=== PATIENT | female | born 1935 | race Caucasian/White ===

== ENCOUNTER → 2017-06-06 | Outpatient (CLI) | payer MEDICARE ==
[~2017-06-06] MED LIST: REGADENOSON 0.4 MG/5 ML SYRINGE ONE
== END | disposition home or self-care (01) ==
LOC: CFH 09:08
PROVIDERS: ATTEND Internal Medicine Cardiovascular Disease
DX: I10 Essential (primary) hypertension (principal); R60.0 Localized edema; R53.83 Other fatigue; M79.669 Pain in unspecified lower leg
CPT/HCPCS: 78452; 93017; A9502; J2785

== ENCOUNTER → 2017-06-16 | Outpatient (CLI) | payer MEDICARE | END | disposition home or self-care (01) | LOC: CVU 11:58 | PROVIDERS: ATTEND Internal Medicine Cardiovascular Disease | DX: I87.2 Venous insufficiency (chronic) (peripheral) (principal); E11.9 Type 2 diabetes mellitus without complications; I10 Essential (primary) hypertension; R53.83 Other fatigue | CPT/HCPCS: 93306; 93922; 93970 ==

== ENCOUNTER → 2017-07-24 | Outpatient (CLI) | payer MEDICARE | END | disposition home or self-care (01) | LOC: STAR 13:45 | PROVIDERS: ATTEND Neurological Surgery | DX: Z01.810 Encounter for preprocedural cardiovascular examination (principal) | CPT/HCPCS: 93005 ==

== ENCOUNTER 2018-03-08 19:47 | Emergency (ER) | payer MEDICARE ==
[~2018-03-08] VITALS: Ht 139.7 cm; Wt 68.1 kg
[2018-03-08 19:50] VITALS: BP 150/85
[2018-03-08] MEDS ORDERED: DIPH,PERTUSS(ACELL),TET VAC/PF 0.5 ML IM-VACC ONE ×2 (20:16→20:30)
[2018-03-08] MEDS ORDERED: LIDOCAINE-MPF 1%, 5ML INFIL ONE (20:30)
[2018-03-08] MEDS ORDERED: BUPIVACAINE 0.25% ONE (20:31)
[2018-03-08] MEDS ORDERED: BUPIVACAINE/PF 0.25% INFIL SCH (22:00)
[2018-03-08] MEDS ORDERED: BUPIVACAINE/PF 0.25% INFIL ONE (22:00)
[2018-03-16] MEDS ORDERED: GLUC15006 PO (15:57)
[2018-03-16] MEDS ORDERED: MULT-516 PO (15:57)
[2018-03-16] MEDS ORDERED: LEVO75TA5 PO (15:57)
[2018-03-16] MEDS ORDERED: DESO15CR21 TP (15:57)
[2018-03-16] MEDS ORDERED: LISI-167 PO (15:57)
[2018-03-16] MEDS ORDERED: METF500T5 PO (15:57)
[2018-03-16] MEDS ORDERED: FLUN25SP NAS (15:57)
[2018-03-16] MEDS ORDERED: RANI150T4 PO (15:57)
[2018-03-16] MEDS ORDERED: GABA300C10 PO (15:57)
[2018-03-16] MEDS ORDERED: UBID50TA PO (15:57)
[2018-03-16] MEDS ORDERED: CITA10TA8 PO (15:57)
[2018-03-16] MEDS ORDERED: RAME8TAB19 PO (15:57)
[2018-03-16] MEDS ORDERED: ASCO-96 PO (15:57)
[2018-03-16] MEDS ORDERED: MIRT30TA4 PO (15:57)
[2018-03-16] MEDS ORDERED: CALCIUM PO (15:57)
[2018-03-16] MEDS ORDERED: MAGNESIUM PO (15:57)
[2018-03-16] MEDS ORDERED: LOVA40TA2 PO (15:57)
[2018-03-16] MEDS ORDERED: ROPINIROLE PO (15:57)
== END 2018-03-08 22:11 | disposition home or self-care (01) ==
LOC: ED 22:05
DX: S62.666B Nondisplaced fracture of distal phalanx of right little finger, initial encounter for open fracture (principal); S61.216A Laceration without foreign body of right little finger without damage to nail, initial encounter; X58.XXXA Exposure to other specified factors, initial encounter; Y93.89 Activity, other specified; Y92.099 Unspecified place in other non-institutional residence as the place of occurrence of the external cause; Y99.8 Other external cause status
CPT/HCPCS: 12001; 73130; 90471; 90715; 99284; J3490

== ENCOUNTER → 2018-03-16 | Outpatient (CLI) | payer MEDICARE ==
[~2018-03-16] MED LIST changes: +ASCO-96 PO; +CALCIUM PO; +CITA10TA8 PO; +DESO15CR21 TP; +FLUN25SP NAS; +GABA300C10 PO; +GLUC15006 PO; +LEVO75TA5 PO; +LISI-167 PO; +LOVA40TA2 PO; +MAGNESIUM PO; +METF500T4 PO; +MIRT30TA4 PO; +MULT-516 PO; +RAME8TAB19 PO; +RANI150T4 PO; -REGADENOSON 0.4 MG/5 ML SYRINGE ONE; +ROPINIROLE PO; +UBID50TA PO
[2018-03-16 15:37] LABS: MEAN CORPUSCULAR HEMOGLOBIN 26.8 pg (27.0-34.8); MEAN CORPUSCULAR HGB CONC 32.5 g/dL (32.4-35.8); MEAN CORPUSCULAR VOLUME 82.4 fL (80-100); MEAN PLATELET VOLUME 8.6 fL (7.4-10.4); PLATELET COUNT 289 x10^3/uL (130-400); RED BLOOD COUNT 4.64 x10^6/uL (3.82-5.3)
[2018-03-16 15:46] LABS: INTERNATIONAL NORMALIZED RATIO 0.97 (0.93-1.1)
[2018-03-16 15:51] LABS: BASOPHILS # (AUTO) 0.04 x10^3/uL (0-0.1); BASOPHILS % (AUTO) 0 % (0-1); EOSINOPHILS # (AUTO) 0.48 x10^3/uL (0-0.4); EOSINOPHILS % (AUTO) 6 % (1-7); LYMPHOCYTES # (AUTO) 2.13 x10^3/uL (1-3.4); LYMPHOCYTES % (AUTO) 27 % (22-44); MONOCYTES # (AUTO) 0.67 x10^3/uL (0.2-0.8); MONOCYTES % (AUTO) 8 % (2-9); NEUTROPHILS # (AUTO) 4.71 x10^3/uL (1.8-6.8); NEUTROPHILS % (AUTO) 59 % (42-75)
[2018-03-16 16:06] LABS: MD NO
[2018-03-16 16:12] LABS: CHLORIDE 109 mmol/L (98-107)
[2018-03-16 16:19] LABS: MICROSCOPIC NOT IND
[2018-03-16 16:24] LABS: CULTURE INDICATED? NO
[2018-03-16 16:30] LABS: ALANINE AMINOTRANSFERASE 28 U/L (12-78); ALBUMIN 3.7 g/dL (3.4-5.0); ALKALINE PHOSPHATASE 90 U/L (45-117); ANION GAP 8 mmol/L (5-15); BILIRUBIN,TOTAL 0.4 mg/dL (0.2-1.0); CALCIUM 8.8 mg/dL (8.5-10.1); CREATININE 0.92 mg/dL (0.55-1.02); TOTAL PROTEIN 7.4 g/dL (6.4-8.2)
== END | disposition home or self-care (01) ==
LOC: STAR 14:12
PROVIDERS: ATTEND Neurological Surgery
DX: Z01.818 Encounter for other preprocedural examination (principal); G56.01 Carpal tunnel syndrome, right upper limb
CPT/HCPCS: 36415; 80053; 81003; 85025; 85610; 85730; 93005

== ENCOUNTER 2018-08-22 22:16 | Inpatient (IN) | payer MEDICARE ==
[~2018-08-22] VITALS: Ht 147.3 cm; Wt 76.2 kg
[~2018-08-22 22:16] MED LIST changes: +METF500T17 PO; -METF500T4 PO
[2018-08-22] MEDS ORDERED: SODIUM CHLORIDE FLUSH 10ML SYR IVF ONE (23:00)
[2018-08-22] MEDS ORDERED: METHYLNALTREXONE 12 MG/0.6 ML SQ ONE ×2 (23:00→23:17)
[2018-08-22] MEDS ORDERED: ONDANSETRON ODT 4 MG PO ONE (23:00)
[2018-08-22] MEDS ORDERED: ONDANSETRON ODT 4 MG ONE (23:17)
[2018-08-22 23:25] LABS: BASOPHILS # (AUTO) 0.01 x10^3/uL (0-0.1); BASOPHILS % (AUTO) 0 % (0-1); EOSINOPHILS # (AUTO) 0.19 x10^3/uL (0-0.4); EOSINOPHILS % (AUTO) 3 % (1-7); LYMPHOCYTES # (AUTO) 1.43 x10^3/uL (1-3.4); LYMPHOCYTES % (AUTO) 22 % (22-44); MD NO; MEAN CORPUSCULAR HEMOGLOBIN 28.6 pg (27.0-34.8); MEAN CORPUSCULAR HGB CONC 33.4 g/dL (32.4-35.8); MEAN CORPUSCULAR VOLUME 85.5 fL (80-100); MEAN PLATELET VOLUME 8.6 fL (7.4-10.4); MONOCYTES % (AUTO) 12 % (2-9); NEUTROPHILS # (AUTO) 4.16 x10^3/uL (1.8-6.8); NEUTROPHILS % (AUTO) 63 % (42-75); PLATELET COUNT 289 x10^3/uL (130-400); RED BLOOD COUNT 4.82 x10^6/uL (3.82-5.3); RED CELL DISTRIBUTION WIDTH 16.2 % (9.6-15.2)
[2018-08-22 23:27] LABS: ALANINE AMINOTRANSFERASE 20 U/L (12-78); ALBUMIN 3.6 g/dL (3.4-5.0); ANION GAP 10 mmol/L (5-15); CALCIUM 9.3 mg/dL (8.5-10.1); CHLORIDE 104 mmol/L (98-107); CREATININE 0.97 mg/dL (0.55-1.02)
[2018-08-22 23:29] LABS: ALKALINE PHOSPHATASE 73 U/L (45-117); BILIRUBIN,TOTAL 0.5 mg/dL (0.2-1.0); TOTAL PROTEIN 7.4 g/dL (6.4-8.2)
[2018-08-23] MEDS ORDERED: OMNIPAQUE 350 MG/ML, 100ML BOTTLE ONE (00:02)
[2018-08-23] MEDS ORDERED: METRONIDAZOLE PMX 500MG/100ML 100 ML ONE (00:49)
[2018-08-23] MEDS ORDERED: MORPHINE SULFATE 4 MG/ML, 1ML ONE (00:50)
[2018-08-23] MEDS ORDERED: METRONIDAZOLE PMX 500MG/100ML 100 ML IV ONE (01:00)
[2018-08-23] MEDS ORDERED: MORPHINE SULFATE 4 MG/ML, 1ML IVPush PRN (01:00)
[2018-08-23] MEDS ORDERED: PLEASE ENTER WEIGHT MC SCH (01:00)
[2018-08-23] MEDS ORDERED: CIPROFLOXACIN/PMX 400MG/200ML 200 ML IV ONE (01:00)
[2018-08-23] MEDS ORDERED: MAGN400T36 PO (01:28)
[2018-08-23] MEDS ORDERED: hydrALAzine 20 MG/ML, 1ML IVPush PRN (01:30)
[2018-08-23] MEDS ORDERED: LABETALOL 5MG/ML, 20ML IVPush PRN (01:30)
[2018-08-23] MEDS ORDERED: ONDANSETRON 2MG/ML, 2ML IVPush PRN (01:30)
[2018-08-23] MEDS ORDERED: ONDANSETRON ODT 4 MG PO PRN (01:30)
[2018-08-23] MEDS ORDERED: PROMETHAZINE 25 MG/ML, 1ML IM PRN (01:30)
[2018-08-23 01:52] LABS: MICROSCOPIC NOT IND
[2018-08-23 01:53] LABS: CULTURE INDICATED? NO
[2018-08-23 01:55] VITALS: BP 134/79
[2018-08-23] MEDS: SODIUM CHLORIDE 0.9% 1,000 ML IV SCH ×3 (02:04→17:46)
[2018-08-23 02:12] LABS: FREE T4 (FREE THYROXINE) 1.37 ng/dL (0.76-1.46); THYROID STIMULATING HORMONE 1.41 mIU/L (0.358-3.740)
[2018-08-23] MEDS ORDERED: FLUTICASONE NASAL SPRAY 16GM NAS PRN (02:30)
[2018-08-23 02:34] LABS: HEMOGLOBIN A1C 8.6 % (4.2-6.3)
[2018-08-23] MEDS: ERTAPENEM 1 GM in SODIUM CHLORIDE 0.9% 50 ML IV SCH (02:43)
[2018-08-23 03:00] VITALS: BP 134/79
[2018-08-23] MEDS ORDERED: TRIAMCINOLONE CRM 0.1%, 15GM TP PRN (03:00)
[2018-08-23] MEDS: LEVOTHYROXINE 75 MCG TABLET PO SCH (06:02)
[2018-08-23] MEDS: morphine SULFATE 10 MG/ML, 1ML IVPush PRN ×2 (06:11→10:04)
[2018-08-23 06:46] LABS: BASOPHILS # (AUTO) 0.03 x10^3/uL (0-0.1); BASOPHILS % (AUTO) 0 % (0-1); EOSINOPHILS # (AUTO) 0.27 x10^3/uL (0-0.4); EOSINOPHILS % (AUTO) 4 % (1-7); LYMPHOCYTES # (AUTO) 1.75 x10^3/uL (1-3.4); LYMPHOCYTES % (AUTO) 28 % (22-44); MD NO; MEAN CORPUSCULAR HEMOGLOBIN 28.8 pg (27.0-34.8); MEAN CORPUSCULAR HGB CONC 33.7 g/dL (32.4-35.8); MEAN CORPUSCULAR VOLUME 85.6 fL (80-100); MEAN PLATELET VOLUME 8.6 fL (7.4-10.4); MONOCYTES # (AUTO) 0.81 x10^3/uL (0.2-0.8); MONOCYTES % (AUTO) 13 % (2-9); NEUTROPHILS # (AUTO) 3.39 x10^3/uL (1.8-6.8); NEUTROPHILS % (AUTO) 54 % (42-75); PLATELET COUNT 228 x10^3/uL (130-400); RED BLOOD COUNT 4.25 x10^6/uL (3.82-5.3); RED CELL DISTRIBUTION WIDTH 16.3 % (9.6-15.2)
[2018-08-23 06:57] LABS: ALANINE AMINOTRANSFERASE 17 U/L (12-78); ANION GAP 8 mmol/L (5-15); CALCIUM 8.7 mg/dL (8.5-10.1); CHLORIDE 107 mmol/L (98-107); CHOLESTEROL, TOTAL 105 mg/dL (140-239); CREATININE 0.81 mg/dL (0.55-1.02)
[2018-08-23 06:59] LABS: ALKALINE PHOSPHATASE 60 U/L (45-117); BILIRUBIN,TOTAL 0.4 mg/dL (0.2-1.0); CHOL/HDL RATIO 3.2; HDL CHOL % 31 % (28-40); HDL CHOLESTEROL (DIRECT) 33 mg/dL (40-60); TRIGLYCERIDES 142 mg/dL (50-200); VLDL CHOLESTEROL 28 mg/dL (0-25)
[2018-08-23 07:00] LABS: LDL CHOLESTEROL,CALCULATED 44 mg/dL (54-169); LDL/HDL RATIO 1.3 (0.5-3.0)
[2018-08-23] MEDS: CIPRO MC SCH ×2 (08:00→16:00)
[2018-08-23] MEDS: ROPINIROLE MC SCH ×2 (08:00→16:00)
[2018-08-23 08:56] VITALS: BP 140/85
[2018-08-23] MEDS: LISINOPRIL 20 MG TABLET PO SCH (08:59)
[2018-08-23] MEDS: CITALOPRAM 10 MG TABLET PO SCH (08:59)
[2018-08-23] MEDS: GABAPENTIN 300 MG CAPSULE PO SCH ×3 (08:59→21:12)
[2018-08-23] MEDS: INSULIN LISPRO 100 UNITS/ML, PEN SQ-INSULIN SCH ×4 (08:59→21:00)
[2018-08-23] MEDS: METRONIDAZOLE PMX 500MG/100ML 100 ML IV SCH ×2 (09:00→17:46)
[2018-08-23] MEDS: OXYcodone IR 5MG TABLET PO PRN (12:31)
[2018-08-23 13:40] VITALS: BP 81/45
[2018-08-23 18:58] VITALS: BP 99/63
[2018-08-23] MEDS: RAMELTEON 8 MG PO SCH (21:12)
[2018-08-23] MEDS: ROPINIROLE 1MG TABLET PO SCH (21:12)
[2018-08-23] MEDS: LOVASTATIN 40 MG TABLET PO SCH (21:12)
[2018-08-23] MEDS: MIRTAZAPINE 30 MG TAB.RAPDIS PO SCH (21:12)
[2018-08-24 00:54] VITALS: BP 103/65
[2018-08-24] MEDS: METRONIDAZOLE PMX 500MG/100ML 100 ML IV SCH ×3 (00:56→16:32)
[2018-08-24] MEDS: ERTAPENEM 1 GM in SODIUM CHLORIDE 0.9% 50 ML IV SCH (02:10)
[2018-08-24] MEDS: SODIUM CHLORIDE 0.9% 1,000 ML IV SCH (02:10)
[2018-08-24] MEDS: LEVOTHYROXINE 75 MCG TABLET PO SCH (06:57)
[2018-08-24] MEDS: INSULIN LISPRO 100 UNITS/ML, PEN SQ-INSULIN SCH ×4 (07:00→20:15)
[2018-08-24 07:40] VITALS: BP 164/83
[2018-08-24 08:27] LABS: BASOPHILS # (AUTO) 0.02 x10^3/uL (0-0.1); BASOPHILS % (AUTO) 0 % (0-1); EOSINOPHILS # (AUTO) 0.18 x10^3/uL (0-0.4); EOSINOPHILS % (AUTO) 4 % (1-7); LYMPHOCYTES # (AUTO) 1.21 x10^3/uL (1-3.4); LYMPHOCYTES % (AUTO) 24 % (22-44); MD NO; MEAN CORPUSCULAR HEMOGLOBIN 28.4 pg (27.0-34.8); MEAN CORPUSCULAR HGB CONC 32.9 g/dL (32.4-35.8); MEAN CORPUSCULAR VOLUME 86.4 fL (80-100); MEAN PLATELET VOLUME 8.5 fL (7.4-10.4); MONOCYTES # (AUTO) 0.62 x10^3/uL (0.2-0.8); MONOCYTES % (AUTO) 13 % (2-9); NEUTROPHILS # (AUTO) 2.93 x10^3/uL (1.8-6.8); NEUTROPHILS % (AUTO) 59 % (42-75); PLATELET COUNT 225 x10^3/uL (130-400); RED BLOOD COUNT 4.22 x10^6/uL (3.82-5.3); RED CELL DISTRIBUTION WIDTH 16.2 % (9.6-15.2)
[2018-08-24 08:35] LABS: ANION GAP 9 mmol/L (5-15); CALCIUM 7.9 mg/dL (8.5-10.1); CHLORIDE 110 mmol/L (98-107)
[2018-08-24] MEDS: CITALOPRAM 10 MG TABLET PO SCH (09:02)
[2018-08-24] MEDS: LISINOPRIL 20 MG TABLET PO SCH (09:02)
[2018-08-24] MEDS: GABAPENTIN 300 MG CAPSULE PO SCH ×3 (09:02→20:29)
[2018-08-24 09:24] LABS: CREATININE 0.68 mg/dL (0.55-1.02)
[2018-08-24 13:04] VITALS: BP 105/66
[2018-08-24 19:19] VITALS: BP 106/61
[2018-08-24] MEDS: LOVASTATIN 40 MG TABLET PO SCH (20:29)
[2018-08-24] MEDS: ROPINIROLE 1MG TABLET PO SCH (20:29)
[2018-08-24] MEDS: MIRTAZAPINE 30 MG TAB.RAPDIS PO SCH (20:29)
[2018-08-24] MEDS: RAMELTEON 8 MG PO SCH (20:31)
[2018-08-25] MEDS: METRONIDAZOLE PMX 500MG/100ML 100 ML IV SCH ×3 (01:03→17:00)
[2018-08-25 01:42] VITALS: BP 110/67
[2018-08-25] MEDS: ERTAPENEM 1 GM in SODIUM CHLORIDE 0.9% 50 ML IV SCH (02:05)
[2018-08-25] MEDS: LEVOTHYROXINE 75 MCG TABLET PO SCH (06:39)
[2018-08-25] MEDS: INSULIN LISPRO 100 UNITS/ML, PEN SQ-INSULIN SCH ×4 (07:00→22:33)
[2018-08-25 07:19] VITALS: BP 115/73
[2018-08-25] MEDS: CITALOPRAM 10 MG TABLET PO SCH (09:48)
[2018-08-25] MEDS: LISINOPRIL 20 MG TABLET PO SCH (09:48)
[2018-08-25] MEDS: GABAPENTIN 300 MG CAPSULE PO SCH ×3 (09:48→22:29)
[2018-08-25] MEDS ORDERED: SODIUM CHLORIDE 0.9% 500 ML IV SCH (13:30)
[2018-08-25 14:28] VITALS: BP 118/72
[2018-08-25 16:10] VITALS: BP 126/82
[2018-08-25] MEDS ORDERED: DEXAMETHASONE 4 MG/ML, 1ML ONE (16:39)
[2018-08-25] MEDS ORDERED: SUCCINYLCHOLINE 20 MG/ML, 10ML ONE (16:39)
[2018-08-25] MEDS ORDERED: NEOSTIGMINE 1 MG/ML, 10ML ONE (16:39)
[2018-08-25] MEDS ORDERED: CEFOTETAN 1 GM ONE (16:39)
[2018-08-25] MEDS ORDERED: MIDAZOLAM 1 MG/ML, 2ML ONE (16:39)
[2018-08-25] MEDS ORDERED: PHENYLEPHRINE 10 MG/ML ONE (16:39)
[2018-08-25] MEDS ORDERED: PROPOFOL 10 MG/ML, 20ML ONE (16:39)
[2018-08-25] MEDS ORDERED: FENTANYL PF 250 MCG/5ML ONE (16:39)
[2018-08-25] MEDS ORDERED: GLYCOPYRROLATE 0.2MG/1ML, 5ML ONE (16:39)
[2018-08-25] MEDS ORDERED: ROCURONIUM 10 MG/ML,10ML ONE (16:39)
[2018-08-25] MEDS ORDERED: METRONIDAZOLE PMX 500MG/100ML 100 ML ONE (18:09)
[2018-08-25] MEDS ORDERED: FENTANYL PF 100 MCG/2ML ONE ×2 (19:02→20:11)
[2018-08-25] MEDS ORDERED: PROMETHAZINE 25 MG/ML, 1ML IV PRN (19:30)
[2018-08-25] MEDS ORDERED: LABETALOL 5MG/ML, 20ML IV PRN (19:30)
[2018-08-25] MEDS ORDERED: DIAZEPAM 5 MG/ML, 2ML IVPush PRN (19:30)
[2018-08-25] MEDS ORDERED: OXYcodone 5 MG/5 ML ORAL.SOL UDC PO PRN (19:30)
[2018-08-25] MEDS ORDERED: ONDANSETRON 2MG/ML, 2ML IV PRN (19:30)
[2018-08-25] MEDS ORDERED: MEPERIDINE/PF 25MG/0.5ML IVPush PRN (19:30)
[2018-08-25] MEDS ORDERED: HALOPERIDOL 5 MG/ML IV PRN (19:30)
[2018-08-25] MEDS ORDERED: hydrALAzine 20 MG/ML, 1ML IV PRN (19:30)
[2018-08-25] MEDS ORDERED: PROMETHAZINE 12.5 MG SUPP PR PRN (19:30)
[2018-08-25] MEDS ORDERED: HYDROmorphone 1 MG/ML, 1ML IVPush PRN (19:30)
[2018-08-25] MEDS ORDERED: ONDANSETRON ODT 8 MG PO PRN (19:30)
[2018-08-25] MEDS ORDERED: MORPHINE SULFATE 4 MG/ML, 1ML IVPush PRN (19:30)
[2018-08-25] MEDS ORDERED: EPHEDRINE 50 MG/ML, 1ML IVPush PRN (19:30)
[2018-08-25] MEDS ORDERED: MIDAZOLAM 1 MG/ML, 2ML IV PRN (19:30)
[2018-08-25] MEDS ORDERED: ALBUTEROL SULFATE 2.5 MG/3 ML NPPB PRN (19:30)
[2018-08-25] MEDS ORDERED: HYDROmorphone PCA 30 MG/30 ML IV PRN (19:30)
[2018-08-25] MEDS: FENTANYL PF 100 MCG/2ML IV PRN ×3 (20:10→20:20)
[2018-08-25] MEDS ORDERED: HYDROmorphone 2 MG/ML, 1ML ONE (20:24)
[2018-08-25] MEDS: HYDROmorphone 1 MG/ML, 1ML IV PRN ×2 (20:25→20:30)
[2018-08-25] MEDS: POTASSIUM CHLORIDE 30 MEQ in SODIUM CHLORIDE 0.45% 1,000 ML IV SCH (21:39)
[2018-08-25] MEDS: LOVASTATIN 40 MG TABLET PO SCH (22:08)
[2018-08-25] MEDS: RAMELTEON 8 MG PO SCH (22:29)
[2018-08-25] MEDS: MIRTAZAPINE 30 MG TAB.RAPDIS PO SCH (22:29)
[2018-08-25] MEDS: ROPINIROLE 1MG TABLET PO SCH (22:29)
[2018-08-25] MEDS: FAMOTIDINE 20 MG/2 ML IVPush SCH (22:34)
[2018-08-25 22:36] VITALS: BP 89/55
[2018-08-25] MEDS ORDERED: SODIUM CHLORIDE 0.9% 1,000ML IVBOLUS ONE (23:30)
[2018-08-26 00:46] VITALS: BP 107/61
[2018-08-26] MEDS: METRONIDAZOLE PMX 500MG/100ML 100 ML IV SCH ×3 (00:56→16:02)
[2018-08-26] MEDS: ERTAPENEM 1 GM in SODIUM CHLORIDE 0.9% 50 ML IV SCH (02:18)
[2018-08-26] MEDS: POTASSIUM CHLORIDE 30 MEQ in SODIUM CHLORIDE 0.45% 1,000 ML IV SCH ×2 (03:58→09:15)
[2018-08-26 04:00] VITALS: BP 92/60
[2018-08-26 06:00] LABS: MEAN CORPUSCULAR HGB CONC 32.5 g/dL (32.4-35.8); MEAN CORPUSCULAR VOLUME 86.3 fL (80-100); MEAN PLATELET VOLUME 8.6 fL (7.4-10.4); PLATELET COUNT 252 x10^3/uL (130-400); RED BLOOD COUNT 4.21 x10^6/uL (3.82-5.3); RED CELL DISTRIBUTION WIDTH 15.8 % (9.6-15.2)
[2018-08-26] MEDS: LEVOTHYROXINE 75 MCG TABLET PO SCH (06:00)
[2018-08-26 06:07] LABS: CHLORIDE 112 mmol/L (98-107)
[2018-08-26 06:17] LABS: ANION GAP 9 mmol/L (5-15); CREATININE 0.99 mg/dL (0.55-1.02)
[2018-08-26 06:27] LABS: MD YES
[2018-08-26 06:28] LABS: BAND#(MANUAL) 4.45 x10^3/uL; BANDS%(MANUAL) 35 % (0-7); LYMPH#(MANUAL) 0.38 x10^3/uL (1-3.4); LYMPHS% (MANUAL) 3 % (22-44); METAMYELOCYTES# (MANUAL) 0.64 x10^3/uL (0-0); METAMYELOCYTES% (MANUAL) 5 % (0-1); MONOS#(MANUAL) 0.64 x10^3/uL (0.3-2.7); MONOS% (MANUAL) 5 % (2-9); SEGS% (MANUAL) 52 % (42-75)
[2018-08-26 06:29] LABS: <PLATELET ESTIMATE> ADEQUATE; <PLT MORPHOLOGY> NORMAL PLT MORPH; ANISOCYTOSIS 1+
[2018-08-26 06:42] VITALS: BP 92/55
[2018-08-26] MEDS: INSULIN LISPRO 100 UNITS/ML, PEN SQ-INSULIN SCH ×4 (07:47→21:39)
[2018-08-26] MEDS: CITALOPRAM 10 MG TABLET PO SCH (08:41)
[2018-08-26] MEDS: FAMOTIDINE 20 MG/2 ML IVPush SCH ×2 (08:41→21:29)
[2018-08-26] MEDS: GABAPENTIN 300 MG CAPSULE PO SCH ×3 (08:42→21:00)
[2018-08-26] MEDS: LISINOPRIL 20 MG TABLET PO SCH (08:42)
[2018-08-26] MEDS: D5%-0.9% NACL 1,000 ML IV SCH ×2 (11:51→18:12)
[2018-08-26 15:23] VITALS: BP 112/65
[2018-08-26 19:29] VITALS: BP 99/62
[2018-08-26] MEDS: MIRTAZAPINE 30 MG TAB.RAPDIS PO SCH (21:00)
[2018-08-26] MEDS: LOVASTATIN 40 MG TABLET PO SCH (21:00)
[2018-08-26] MEDS: ROPINIROLE 1MG TABLET PO SCH (21:00)
[2018-08-26] MEDS: RAMELTEON 8 MG PO SCH (21:00)
[2018-08-27] MEDS: D5%-0.9% NACL 1,000 ML IV SCH ×3 (00:18→21:32)
[2018-08-27 00:32] VITALS: BP 116/72
[2018-08-27] MEDS: METRONIDAZOLE PMX 500MG/100ML 100 ML IV SCH ×3 (01:06→16:58)
[2018-08-27] MEDS: INSULIN LISPRO 100 UNITS/ML, PEN SQ-INSULIN SCH ×6 (01:16→21:31)
[2018-08-27] MEDS: ERTAPENEM 1 GM in SODIUM CHLORIDE 0.9% 50 ML IV SCH (02:42)
[2018-08-27] MEDS: LEVOTHYROXINE 75 MCG TABLET PO SCH (05:11)
[2018-08-27 05:34] LABS: BASOPHILS # (AUTO) 0.05 x10^3/uL (0-0.1); BASOPHILS % (AUTO) 1 % (0-1); EOSINOPHILS # (AUTO) 0.02 x10^3/uL (0-0.4); EOSINOPHILS % (AUTO) 0 % (1-7); LYMPHOCYTES # (AUTO) 0.87 x10^3/uL (1-3.4); LYMPHOCYTES % (AUTO) 9 % (22-44); MD NO; MEAN CORPUSCULAR HGB CONC 32.8 g/dL (32.4-35.8); MEAN CORPUSCULAR VOLUME 85.4 fL (80-100); MEAN PLATELET VOLUME 8.3 fL (7.4-10.4); MONOCYTES # (AUTO) 0.67 x10^3/uL (0.2-0.8); MONOCYTES % (AUTO) 7 % (2-9); NEUTROPHILS # (AUTO) 8.12 x10^3/uL (1.8-6.8); NEUTROPHILS % (AUTO) 84 % (42-75); PLATELET COUNT 243 x10^3/uL (130-400); RED BLOOD COUNT 4.08 x10^6/uL (3.82-5.3); RED CELL DISTRIBUTION WIDTH 15.9 % (9.6-15.2)
[2018-08-27 05:46] LABS: ALBUMIN 2.3 g/dL (3.4-5.0); ANION GAP 7 mmol/L (5-15); CALCIUM 7.4 mg/dL (8.5-10.1); CHLORIDE 113 mmol/L (98-107)
[2018-08-27 07:22] VITALS: BP 129/72
[2018-08-27] MEDS: FAMOTIDINE 20 MG/2 ML IVPush SCH ×2 (08:48→21:32)
[2018-08-27] MEDS: CITALOPRAM 10 MG TABLET PO SCH (08:49)
[2018-08-27] MEDS: LISINOPRIL 20 MG TABLET PO SCH (08:49)
[2018-08-27] MEDS: GABAPENTIN 300 MG CAPSULE PO SCH ×3 (08:49→21:29)
[2018-08-27] MEDS ORDERED: SODIUM PHOSPHATE 20 MMOL in SODIUM CHLORIDE 0.9% 500 ML IV ONE (10:00)
[2018-08-27] MEDS ORDERED: OXYcodone/APAP 7.5/325MG TABLET PO PRN (10:00)
[2018-08-27 13:53] VITALS: BP 87/58
[2018-08-27] MEDS ORDERED: SODIUM CHLORIDE 0.9% 250 ML IV SCH (15:30)
[2018-08-27] MEDS ORDERED: ALBUTEROL SULFATE 2.5 MG/3 ML ONE (15:36)
[2018-08-27] MEDS ORDERED: ALBUTEROL SULFATE 2.5 MG/3 ML NPPB PRN (16:00)
[2018-08-27] MEDS ORDERED: SODIUM CHLORIDE 0.9%, 250ML IVBOLUS ONE (17:30)
[2018-08-27 18:31] VITALS: BP 104/78
[2018-08-27] MEDS: RAMELTEON 8 MG PO SCH (21:00)
[2018-08-27] MEDS: ROPINIROLE 1MG TABLET PO SCH (21:29)
[2018-08-27] MEDS: LOVASTATIN 40 MG TABLET PO SCH (21:29)
[2018-08-27] MEDS: MIRTAZAPINE 30 MG TAB.RAPDIS PO SCH (21:30)
[2018-08-27 21:51] VITALS: BP 94/58
[2018-08-28 00:20] VITALS: BP 154/87
[2018-08-28] MEDS: OXYcodone IR 5MG TABLET PO PRN ×4 (00:22→20:45)
[2018-08-28] MEDS: METRONIDAZOLE PMX 500MG/100ML 100 ML IV SCH ×2 (00:32→08:35)
[2018-08-28] MEDS: INSULIN LISPRO 100 UNITS/ML, PEN SQ-INSULIN SCH ×5 (00:41→23:00)
[2018-08-28] MEDS: ERTAPENEM 1 GM in SODIUM CHLORIDE 0.9% 50 ML IV SCH (02:34)
[2018-08-28] MEDS: D5%-0.9% NACL 1,000 ML IV SCH ×2 (05:04→14:45)
[2018-08-28] MEDS: LEVOTHYROXINE 75 MCG TABLET PO SCH (05:10)
[2018-08-28 07:32] VITALS: BP 130/75
[2018-08-28] MEDS: CITALOPRAM 10 MG TABLET PO SCH (08:35)
[2018-08-28] MEDS: FAMOTIDINE 20 MG/2 ML IVPush SCH ×2 (08:35→20:18)
[2018-08-28] MEDS: GABAPENTIN 300 MG CAPSULE PO SCH ×3 (08:35→20:17)
[2018-08-28 13:00] VITALS: BP 138/71
[2018-08-28 19:34] VITALS: BP 107/71
[2018-08-28] MEDS: ROPINIROLE 1MG TABLET PO SCH (20:16)
[2018-08-28] MEDS: MIRTAZAPINE 30 MG TAB.RAPDIS PO SCH (20:17)
[2018-08-28] MEDS: LOVASTATIN 40 MG TABLET PO SCH (20:17)
[2018-08-28] MEDS: RAMELTEON 8 MG PO SCH (20:18)
[2018-08-29 00:12] VITALS: BP 101/68
[2018-08-29] MEDS: ERTAPENEM 1 GM in SODIUM CHLORIDE 0.9% 50 ML IV SCH (02:47)
[2018-08-29] MEDS: D5%-0.9% NACL 1,000 ML IV SCH ×3 (04:20→23:29)
[2018-08-29] MEDS: INSULIN LISPRO 100 UNITS/ML, PEN SQ-INSULIN SCH ×4 (05:00→23:29)
[2018-08-29 05:46] LABS: BASOPHILS # (AUTO) 0.02 x10^3/uL (0-0.1); BASOPHILS % (AUTO) 0 % (0-1); EOSINOPHILS # (AUTO) 0.31 x10^3/uL (0-0.4); EOSINOPHILS % (AUTO) 4 % (1-7); LYMPHOCYTES # (AUTO) 1.04 x10^3/uL (1-3.4); LYMPHOCYTES % (AUTO) 14 % (22-44); MD NO; MEAN CORPUSCULAR HEMOGLOBIN 28.3 pg (27.0-34.8); MEAN CORPUSCULAR HGB CONC 32.6 g/dL (32.4-35.8); MEAN CORPUSCULAR VOLUME 86.8 fL (80-100); MEAN PLATELET VOLUME 8.4 fL (7.4-10.4); MONOCYTES # (AUTO) 0.65 x10^3/uL (0.2-0.8); MONOCYTES % (AUTO) 9 % (2-9); NEUTROPHILS # (AUTO) 5.71 x10^3/uL (1.8-6.8); NEUTROPHILS % (AUTO) 74 % (42-75); PLATELET COUNT 242 x10^3/uL (130-400); RED BLOOD COUNT 3.91 x10^6/uL (3.82-5.3); RED CELL DISTRIBUTION WIDTH 16.2 % (9.6-15.2)
[2018-08-29 05:49] LABS: ALBUMIN 1.7 g/dL (3.4-5.0); ANION GAP 8 mmol/L (5-15); CALCIUM 7.4 mg/dL (8.5-10.1); CHLORIDE 115 mmol/L (98-107); CREATININE 0.56 mg/dL (0.55-1.02)
[2018-08-29] MEDS: LEVOTHYROXINE 75 MCG TABLET PO SCH (06:38)
[2018-08-29 07:40] VITALS: BP 109/69
[2018-08-29] MEDS ORDERED: MAGNESIUM SULFATE PMX 2GM/50ML 50 ML IV ONE (08:30)
[2018-08-29] MEDS ORDERED: POTASSIUM CHLORIDE 20 MEQ TAB.ER.PRT PO ONE (08:30)
[2018-08-29] MEDS ORDERED: MAGNESIUM SULFATE PMX 2GM/50ML 50 ML ONE (08:58)
[2018-08-29] MEDS ORDERED: POTASSIUM PHOSPHATE 44 MEQ in SODIUM CHLORIDE 0.9% 500 ML IV ONE (09:00)
[2018-08-29] MEDS: GABAPENTIN 300 MG CAPSULE PO SCH ×3 (09:00→20:19)
[2018-08-29] MEDS: MORPHINE SULFATE 4 MG/ML, 1ML IVPush ONE ×2 (09:00→09:17)
[2018-08-29] MEDS: CITALOPRAM 10 MG TABLET PO SCH (09:13)
[2018-08-29] MEDS: FAMOTIDINE 20 MG/2 ML IVPush SCH ×2 (09:14→20:23)
[2018-08-29 12:58] VITALS: BP 128/77
[2018-08-29] MEDS: OXYcodone IR 5MG TABLET PO PRN (15:53)
[2018-08-29 18:28] VITALS: BP 134/81
[2018-08-29] MEDS: ROPINIROLE 1MG TABLET PO SCH (20:19)
[2018-08-29] MEDS: MIRTAZAPINE 30 MG TAB.RAPDIS PO SCH (20:19)
[2018-08-29] MEDS: LOVASTATIN 40 MG TABLET PO SCH (20:19)
[2018-08-29] MEDS: RAMELTEON 8 MG PO SCH (20:19)
[2018-08-30 01:11] VITALS: BP 116/76
[2018-08-30] MEDS: ERTAPENEM 1 GM in SODIUM CHLORIDE 0.9% 50 ML IV SCH (02:16)
[2018-08-30] MEDS: LEVOTHYROXINE 75 MCG TABLET PO SCH (05:54)
[2018-08-30] MEDS: OXYcodone IR 5MG TABLET PO PRN (05:54)
[2018-08-30] MEDS: INSULIN LISPRO 100 UNITS/ML, PEN SQ-INSULIN SCH ×4 (05:55→23:23)
[2018-08-30 07:26] VITALS: BP 109/64
[2018-08-30] MEDS: CITALOPRAM 10 MG TABLET PO SCH (08:37)
[2018-08-30] MEDS: D5%-0.9% NACL 1,000 ML IV SCH ×2 (08:37→16:22)
[2018-08-30] MEDS: FAMOTIDINE 20 MG/2 ML IVPush SCH ×2 (08:37→21:00)
[2018-08-30] MEDS: GABAPENTIN 300 MG CAPSULE PO SCH ×3 (08:37→21:00)
[2018-08-30 12:48] VITALS: BP 147/74
[2018-08-30] MEDS: OXYcodone/APAP 7.5/325MG TABLET PO PRN (15:09)
[2018-08-30 18:46] VITALS: BP 120/73
[2018-08-30] MEDS: MIRTAZAPINE 30 MG TAB.RAPDIS PO SCH (21:00)
[2018-08-30] MEDS: RAMELTEON 8 MG PO SCH (21:00)
[2018-08-30] MEDS: ROPINIROLE 1MG TABLET PO SCH (21:00)
[2018-08-30] MEDS: LOVASTATIN 40 MG TABLET PO SCH (21:00)
[2018-08-31] MEDS: D5%-0.9% NACL 1,000 ML IV SCH (00:52)
[2018-08-31 00:56] VITALS: BP 142/89
[2018-08-31] MEDS: ERTAPENEM 1 GM in SODIUM CHLORIDE 0.9% 50 ML IV SCH (02:29)
[2018-08-31] MEDS: INSULIN LISPRO 100 UNITS/ML, PEN SQ-INSULIN SCH ×4 (05:00→23:35)
[2018-08-31] MEDS: LEVOTHYROXINE 75 MCG TABLET PO SCH (05:03)
[2018-08-31 07:49] VITALS: BP 128/68
[2018-08-31] MEDS ORDERED: TPN PER PHARMACY MC PRN (08:00)
[2018-08-31 08:50] LABS: ALANINE AMINOTRANSFERASE 9 U/L (12-78); ALBUMIN 1.7 g/dL (3.4-5.0); ANION GAP 5 mmol/L (5-15); CALCIUM 7.5 mg/dL (8.5-10.1); CHLORIDE 118 mmol/L (98-107); CREATININE 0.47 mg/dL (0.55-1.02)
[2018-08-31 08:55] LABS: ALKALINE PHOSPHATASE 46 U/L (45-117); BILIRUBIN,TOTAL 0.3 mg/dL (0.2-1.0); PREALBUMIN 8.4 mg/dL (20.0-40.0); TOTAL PROTEIN 4.5 g/dL (6.4-8.2); TRIGLYCERIDES 218 mg/dL (50-200)
[2018-08-31] MEDS: GABAPENTIN 300 MG CAPSULE PO SCH ×3 (09:20→21:39)
[2018-08-31] MEDS: CITALOPRAM 10 MG TABLET PO SCH (09:20)
[2018-08-31] MEDS: FAMOTIDINE 20 MG/2 ML IVPush SCH (09:20)
[2018-08-31] MEDS ORDERED: ALBUTEROL SULFATE 2.5 MG/3 ML ONE (09:27)
[2018-08-31] MEDS ORDERED: D5%-0.9% NACL 1,000 ML IV SCH ×3 (09:30→17:00)
[2018-08-31] MEDS ORDERED: ALBUTEROL SULFATE 2.5 MG/3 ML NPPB PRN (10:00)
[2018-08-31] MEDS: OXYcodone/APAP 7.5/325MG TABLET PO PRN ×2 (11:05→19:50)
[2018-08-31 13:01] VITALS: BP 128/74
[2018-08-31] MEDS ORDERED: VANCOMYCIN PER PHARMACY MC PRN (14:30)
[2018-08-31] MEDS ORDERED: FUROSEMIDE 40 MG/4 ML IV ONE (14:30)
[2018-08-31] MEDS ORDERED: ALBUMIN HUMAN 25% 50 ML IV ONE (15:00)
[2018-08-31] MEDS: LEVOFLOXACIN/PMX 750MG/150ML 150 ML IV SCH (15:30)
[2018-08-31] MEDS ORDERED: PHARMACOKINETIC MONITORING MC PRN ×2 (15:30)
[2018-08-31] MEDS ORDERED: PHARMACOKINETIC CONSULTATION MC ONE ×2 (15:30)
[2018-08-31] MEDS: METRONIDAZOLE PMX 500MG/100ML 100 ML IV SCH ×2 (16:54→23:28)
[2018-08-31] MEDS ORDERED: AMINO ACID 10% IV SCH (17:00)
[2018-08-31] MEDS ORDERED: FILTER, DISP 1.2 MICRON FOR TPN/PVN IV PRN (17:00)
[2018-08-31] MEDS ORDERED: FAT EMUL IV SCH (17:00)
[2018-08-31] MEDS ORDERED: DEXTROSE 50%, 50ML SYRINGE IVPush PRN (17:00)
[2018-08-31] MEDS ORDERED: DEXTROSE 70% IV SCH (17:00)
[2018-08-31] MEDS ORDERED: SMOF TPN IV SCH (17:00)
[2018-08-31] MEDS ORDERED: DEXTROSE 10% 500 ML IV PRN (17:00)
[2018-08-31] MEDS ORDERED: [UNRECOGNIZED DRUG - OTHER] IV SCH (17:00)
[2018-08-31] MEDS: VANCOMYCIN 1,400 MG in SODIUM CHLORIDE 0.9% 250 ML IV SCH (18:18)
[2018-08-31 19:59] VITALS: BP 132/85
[2018-08-31] MEDS: RAMELTEON 8 MG PO SCH (21:00)
[2018-08-31] MEDS: LOVASTATIN 40 MG TABLET PO SCH (21:39)
[2018-08-31] MEDS: ACETAMINOPHEN 325 MG TABLET PO PRN (21:40)
[2018-08-31] MEDS: ROPINIROLE 1MG TABLET PO SCH (21:40)
[2018-08-31] MEDS: MIRTAZAPINE 30 MG TAB.RAPDIS PO SCH (21:40)
[2018-09-01 02:00] VITALS: BP 154/85
[2018-09-01 04:42] LABS: ALBUMIN 1.8 g/dL (3.4-5.0); ANION GAP 8 mmol/L (5-15); CALCIUM 7.6 mg/dL (8.5-10.1); CHLORIDE 111 mmol/L (98-107); CREATININE 0.52 mg/dL (0.55-1.02)
[2018-09-01 04:52] LABS: BASOPHILS # (AUTO) 0.02 x10^3/uL (0-0.1); BASOPHILS % (AUTO) 0 % (0-1); EOSINOPHILS # (AUTO) 0.13 x10^3/uL (0-0.4); EOSINOPHILS % (AUTO) 2 % (1-7); LYMPHOCYTES # (AUTO) 0.56 x10^3/uL (1-3.4); LYMPHOCYTES % (AUTO) 10 % (22-44); MD NO; MEAN CORPUSCULAR HEMOGLOBIN 26.8 pg (27.0-34.8); MEAN CORPUSCULAR HGB CONC 31.8 g/dL (32.4-35.8); MEAN CORPUSCULAR VOLUME 84.3 fL (80-100); MEAN PLATELET VOLUME 8.7 fL (7.4-10.4); MONOCYTES # (AUTO) 0.31 x10^3/uL (0.2-0.8); MONOCYTES % (AUTO) 6 % (2-9); NEUTROPHILS # (AUTO) 4.57 x10^3/uL (1.8-6.8); NEUTROPHILS % (AUTO) 82 % (42-75); PLATELET COUNT 156 x10^3/uL (130-400); RED BLOOD COUNT 3.57 x10^6/uL (3.82-5.3); RED CELL DISTRIBUTION WIDTH 15.5 % (9.6-15.2)
[2018-09-01] MEDS: INSULIN LISPRO 100 UNITS/ML, PEN SQ-INSULIN SCH ×4 (05:27→23:00)
[2018-09-01] MEDS: LEVOTHYROXINE 75 MCG TABLET PO SCH (05:27)
[2018-09-01] MEDS: METRONIDAZOLE PMX 500MG/100ML 100 ML IV SCH ×3 (07:45→23:12)
[2018-09-01 08:01] VITALS: BP 145/85
[2018-09-01] MEDS: CITALOPRAM 10 MG TABLET PO SCH (08:26)
[2018-09-01] MEDS: GABAPENTIN 300 MG CAPSULE PO SCH ×3 (09:07→21:06)
[2018-09-01] MEDS ORDERED: FUROSEMIDE 40 MG/4 ML IV ONE (10:00)
[2018-09-01] MEDS ORDERED: ALBUMIN HUMAN 25% 50 ML IV ONE (10:00)
[2018-09-01] MEDS: OXYcodone/APAP 7.5/325MG TABLET PO PRN ×2 (13:04→23:19)
[2018-09-01] MEDS: LEVOFLOXACIN/PMX 750MG/150ML 150 ML IV SCH (15:34)
[2018-09-01 15:51] VITALS: BP 145/85
[2018-09-01] MEDS: FILTER, DISP 1.2 MICRON FOR TPN/PVN IV PRN (16:00)
[2018-09-01] MEDS ORDERED: [UNRECOGNIZED DRUG - OTHER] IV SCH (17:00)
[2018-09-01] MEDS ORDERED: SMOF TPN IV SCH (17:00)
[2018-09-01] MEDS ORDERED: FAT EMUL IV SCH (17:00)
[2018-09-01] MEDS ORDERED: AMINO ACID 10% IV SCH (17:00)
[2018-09-01] MEDS ORDERED: DEXTROSE 70% IV SCH (17:00)
[2018-09-01] MEDS: VANCOMYCIN 1,400 MG in SODIUM CHLORIDE 0.9% 250 ML IV SCH (17:21)
[2018-09-01 19:21] VITALS: BP 116/68
[2018-09-01] MEDS: RAMELTEON 8 MG PO SCH (21:00)
[2018-09-01] MEDS: MIRTAZAPINE 30 MG TAB.RAPDIS PO SCH (21:07)
[2018-09-01] MEDS: LOVASTATIN 40 MG TABLET PO SCH (21:07)
[2018-09-01] MEDS: ROPINIROLE 1MG TABLET PO SCH (21:07)
[2018-09-02 00:10] VITALS: BP 155/82
[2018-09-02] MEDS: INSULIN LISPRO 100 UNITS/ML, PEN SQ-INSULIN SCH ×3 (05:31→16:54)
[2018-09-02] MEDS: LEVOTHYROXINE 75 MCG TABLET PO SCH (05:32)
[2018-09-02 05:58] LABS: ANION GAP 7 mmol/L (5-15); CALCIUM 7.6 mg/dL (8.5-10.1); CHLORIDE 105 mmol/L (98-107); CREATININE 0.54 mg/dL (0.55-1.02)
[2018-09-02 07:39] VITALS: BP 109/67
[2018-09-02] MEDS: METRONIDAZOLE PMX 500MG/100ML 100 ML IV SCH (07:50)
[2018-09-02] MEDS: CITALOPRAM 10 MG TABLET PO SCH (08:18)
[2018-09-02] MEDS: GABAPENTIN 300 MG CAPSULE PO SCH ×3 (08:18→22:22)
[2018-09-02 09:20] LABS: MEAN CORPUSCULAR HEMOGLOBIN 27.8 pg (27.0-34.8); MEAN CORPUSCULAR HGB CONC 32.9 g/dL (32.4-35.8); MEAN CORPUSCULAR VOLUME 84.5 fL (80-100); RED BLOOD COUNT 3.78 x10^6/uL (3.82-5.3); RED CELL DISTRIBUTION WIDTH 15.7 % (9.6-15.2)
[2018-09-02 09:34] LABS: MEAN PLATELET VOLUME 7.9 fL (7.4-10.4); PLATELET COUNT 240 x10^3/uL (130-400)
[2018-09-02 09:36] LABS: BASOPHILS # (AUTO) 0.05 x10^3/uL (0-0.1); BASOPHILS % (AUTO) 1 % (0-1); EOSINOPHILS # (AUTO) 0.29 x10^3/uL (0-0.4); EOSINOPHILS % (AUTO) 4 % (1-7); LYMPHOCYTES # (AUTO) 0.82 x10^3/uL (1-3.4); LYMPHOCYTES % (AUTO) 12 % (22-44); MD SCAN; MONOCYTES # (AUTO) 0.47 x10^3/uL (0.2-0.8); MONOCYTES % (AUTO) 7 % (2-9); NEUTROPHILS # (AUTO) 5.06 x10^3/uL (1.8-6.8); NEUTROPHILS % (AUTO) 76 % (42-75)
[2018-09-02 12:40] VITALS: BP 113/70
[2018-09-02] MEDS ORDERED: FAT EMUL IV SCH (17:00)
[2018-09-02] MEDS ORDERED: SMOF TPN IV SCH (17:00)
[2018-09-02] MEDS ORDERED: [UNRECOGNIZED DRUG - OTHER] IV SCH (17:00)
[2018-09-02] MEDS ORDERED: DEXTROSE 70% IV SCH (17:00)
[2018-09-02] MEDS ORDERED: AMINO ACID 10% IV SCH (17:00)
[2018-09-02] MEDS: FILTER, DISP 1.2 MICRON FOR TPN/PVN IV PRN (17:00)
[2018-09-02] MEDS: OXYcodone/APAP 7.5/325MG TABLET PO PRN (18:06)
[2018-09-02 19:13] VITALS: BP 127/83
[2018-09-02] MEDS: MIRTAZAPINE 30 MG TAB.RAPDIS PO SCH (22:21)
[2018-09-02] MEDS: ROPINIROLE 1MG TABLET PO SCH (22:21)
[2018-09-02] MEDS: LOVASTATIN 40 MG TABLET PO SCH (22:21)
[2018-09-02] MEDS: RAMELTEON 8 MG PO SCH (22:22)
[2018-09-03] MEDS: INSULIN LISPRO 100 UNITS/ML, PEN SQ-INSULIN SCH ×5 (00:01→23:40)
[2018-09-03 02:11] VITALS: BP 114/67
[2018-09-03] MEDS: OXYcodone/APAP 7.5/325MG TABLET PO PRN (05:20)
[2018-09-03 05:55] LABS: BASOPHILS # (AUTO) 0.06 x10^3/uL (0-0.1); BASOPHILS % (AUTO) 1 % (0-1); EOSINOPHILS # (AUTO) 0.29 x10^3/uL (0-0.4); EOSINOPHILS % (AUTO) 5 % (1-7); LYMPHOCYTES # (AUTO) 0.68 x10^3/uL (1-3.4); LYMPHOCYTES % (AUTO) 11 % (22-44); MD NO; MEAN CORPUSCULAR HEMOGLOBIN 28.7 pg (27.0-34.8); MEAN CORPUSCULAR HGB CONC 34.2 g/dL (32.4-35.8); MEAN CORPUSCULAR VOLUME 83.8 fL (80-100); MEAN PLATELET VOLUME 8.4 fL (7.4-10.4); MONOCYTES # (AUTO) 0.49 x10^3/uL (0.2-0.8); MONOCYTES % (AUTO) 8 % (2-9); NEUTROPHILS % (AUTO) 76 % (42-75); PLATELET COUNT 230 x10^3/uL (130-400); RED BLOOD COUNT 3.65 x10^6/uL (3.82-5.3); RED CELL DISTRIBUTION WIDTH 15.3 % (9.6-15.2)
[2018-09-03] MEDS: LEVOTHYROXINE 75 MCG TABLET PO SCH (05:56)
[2018-09-03 06:04] LABS: ANION GAP 5 mmol/L (5-15); CHLORIDE 102 mmol/L (98-107)
[2018-09-03 06:08] LABS: CREATININE 0.56 mg/dL (0.55-1.02)
[2018-09-03 07:16] VITALS: BP 104/64
[2018-09-03] MEDS: CITALOPRAM 10 MG TABLET PO SCH (08:21)
[2018-09-03] MEDS: GABAPENTIN 300 MG CAPSULE PO SCH ×3 (08:22→20:40)
[2018-09-03] MEDS: OXYcodone IR 5MG TABLET PO PRN (09:39)
[2018-09-03 12:40] VITALS: BP 89/54
[2018-09-03] MEDS: FILTER, DISP 1.2 MICRON FOR TPN/PVN IV PRN (16:51)
[2018-09-03] MEDS ORDERED: SMOF TPN IV SCH (17:00)
[2018-09-03] MEDS ORDERED: [UNRECOGNIZED DRUG - OTHER] IV SCH (17:00)
[2018-09-03] MEDS ORDERED: FAT EMUL IV SCH (17:00)
[2018-09-03] MEDS ORDERED: AMINO ACID 10% IV SCH (17:00)
[2018-09-03] MEDS ORDERED: DEXTROSE 70% IV SCH (17:00)
[2018-09-03 20:30] VITALS: BP 132/80
[2018-09-03] MEDS: LOVASTATIN 40 MG TABLET PO SCH (20:40)
[2018-09-03] MEDS: MIRTAZAPINE 30 MG TAB.RAPDIS PO SCH (20:40)
[2018-09-03] MEDS: ROPINIROLE 1MG TABLET PO SCH (20:40)
[2018-09-03] MEDS: RAMELTEON 8 MG PO SCH (20:40)
[2018-09-04 01:21] VITALS: BP 113/72
[2018-09-04] MEDS ORDERED: CATHFLO-ALTEPLASE 2 MG/2 ML CATHFLUSH ONE ×2 (04:30→09:00)
[2018-09-04 06:03] LABS: ALBUMIN 1.9 g/dL (3.4-5.0); ANION GAP 8 mmol/L (5-15); CHLORIDE 104 mmol/L (98-107)
[2018-09-04] MEDS: LEVOTHYROXINE 75 MCG TABLET PO SCH (06:05)
[2018-09-04] MEDS: INSULIN LISPRO 100 UNITS/ML, PEN SQ-INSULIN SCH ×4 (06:06→22:57)
[2018-09-04 06:08] LABS: ALANINE AMINOTRANSFERASE 12 U/L (12-78); ALKALINE PHOSPHATASE 66 U/L (45-117); BILIRUBIN,TOTAL 0.4 mg/dL (0.2-1.0); CREATININE 0.49 mg/dL (0.55-1.02); TOTAL PROTEIN 4.9 g/dL (6.4-8.2)
[2018-09-04 07:38] VITALS: BP 119/74
[2018-09-04] MEDS: GABAPENTIN 300 MG CAPSULE PO SCH ×3 (08:49→21:36)
[2018-09-04] MEDS: CITALOPRAM 10 MG TABLET PO SCH (08:49)
[2018-09-04 12:54] VITALS: BP 126/84
[2018-09-04] MEDS: OXYcodone/APAP 7.5/325MG TABLET PO PRN (15:11)
[2018-09-04] MEDS ORDERED: [UNRECOGNIZED DRUG - OTHER] IV SCH (17:00)
[2018-09-04] MEDS ORDERED: FAT EMUL IV SCH (17:00)
[2018-09-04] MEDS ORDERED: DEXTROSE 70% IV SCH (17:00)
[2018-09-04] MEDS ORDERED: SMOF TPN IV SCH (17:00)
[2018-09-04] MEDS ORDERED: AMINO ACID 10% IV SCH (17:00)
[2018-09-04] MEDS: FILTER, DISP 1.2 MICRON FOR TPN/PVN IV PRN (17:20)
[2018-09-04 18:42] VITALS: BP 108/67
[2018-09-04] MEDS: RAMELTEON 8 MG PO SCH (21:00)
[2018-09-04] MEDS: MIRTAZAPINE 30 MG TAB.RAPDIS PO SCH (21:36)
[2018-09-04] MEDS: LOVASTATIN 40 MG TABLET PO SCH (21:36)
[2018-09-04] MEDS: ROPINIROLE 1MG TABLET PO SCH (21:36)
[2018-09-05 01:26] VITALS: BP 98/61
[2018-09-05 04:47] LABS: BASOPHILS # (AUTO) 0.02 x10^3/uL (0-0.1); BASOPHILS % (AUTO) 0 % (0-1); EOSINOPHILS # (AUTO) 0.31 x10^3/uL (0-0.4); EOSINOPHILS % (AUTO) 6 % (1-7); LYMPHOCYTES # (AUTO) 0.88 x10^3/uL (1-3.4); LYMPHOCYTES % (AUTO) 17 % (22-44); MD NO; MEAN CORPUSCULAR HEMOGLOBIN 28.3 pg (27.0-34.8); MEAN CORPUSCULAR HGB CONC 33.5 g/dL (32.4-35.8); MEAN CORPUSCULAR VOLUME 84.5 fL (80-100); MONOCYTES # (AUTO) 0.67 x10^3/uL (0.2-0.8); MONOCYTES % (AUTO) 13 % (2-9); NEUTROPHILS # (AUTO) 3.46 x10^3/uL (1.8-6.8); NEUTROPHILS % (AUTO) 65 % (42-75); PLATELET COUNT 230 x10^3/uL (130-400); RED BLOOD COUNT 3.39 x10^6/uL (3.82-5.3)
[2018-09-05 05:01] LABS: CHLORIDE 105 mmol/L (98-107)
[2018-09-05 05:08] LABS: ALANINE AMINOTRANSFERASE 12 U/L (12-78); ALBUMIN 1.9 g/dL (3.4-5.0); ALKALINE PHOSPHATASE 75 U/L (45-117); ANION GAP 6 mmol/L (5-15); BILIRUBIN,TOTAL 0.3 mg/dL (0.2-1.0); CALCIUM 7.7 mg/dL (8.5-10.1); CREATININE 0.61 mg/dL (0.55-1.02); TOTAL PROTEIN 4.8 g/dL (6.4-8.2)
[2018-09-05] MEDS: LEVOTHYROXINE 75 MCG TABLET PO SCH (05:10)
[2018-09-05] MEDS: INSULIN LISPRO 100 UNITS/ML, PEN SQ-INSULIN SCH ×4 (05:11→20:28)
[2018-09-05 08:10] VITALS: BP 125/77
[2018-09-05] MEDS: GABAPENTIN 300 MG CAPSULE PO SCH ×3 (08:42→20:27)
[2018-09-05] MEDS: CITALOPRAM 10 MG TABLET PO SCH (08:42)
[2018-09-05] MEDS: ACETAMINOPHEN 325 MG TABLET PO PRN ×2 (11:35→15:33)
[2018-09-05 13:50] VITALS: BP 96/58
[2018-09-05] MEDS ORDERED: AMINO ACID 10% IV SCH (17:00)
[2018-09-05] MEDS ORDERED: DEXTROSE 70% IV SCH (17:00)
[2018-09-05] MEDS ORDERED: FILTER, DISP 1.2 MICRON FOR TPN/PVN IV PRN (17:00)
[2018-09-05] MEDS ORDERED: FAT EMUL IV SCH (17:00)
[2018-09-05] MEDS ORDERED: SMOF TPN IV SCH (17:00)
[2018-09-05] MEDS ORDERED: [UNRECOGNIZED DRUG - OTHER] IV SCH (17:00)
[2018-09-05] MEDS: RAMELTEON 8 MG PO SCH (20:27)
[2018-09-05] MEDS: LOVASTATIN 40 MG TABLET PO SCH (20:27)
[2018-09-05] MEDS: ROPINIROLE 1MG TABLET PO SCH (20:27)
[2018-09-05] MEDS: MIRTAZAPINE 30 MG TAB.RAPDIS PO SCH (20:27)
[2018-09-05 21:55] VITALS: BP 136/78
[2018-09-06 02:59] VITALS: BP 120/69
[2018-09-06] MEDS: LEVOTHYROXINE 75 MCG TABLET PO SCH (05:48)
[2018-09-06] MEDS: INSULIN LISPRO 100 UNITS/ML, PEN SQ-INSULIN SCH ×2 (07:00→11:21)
[2018-09-06 07:25] VITALS: BP 145/84
[2018-09-06] MEDS: GABAPENTIN 300 MG CAPSULE PO SCH (08:37)
[2018-09-06] MEDS: CITALOPRAM 10 MG TABLET PO SCH (08:38)
[2018-09-06 11:40] LABS: MICROSCOPIC NOT IND
[2018-09-06 11:43] LABS: CULTURE INDICATED? NO
[2018-09-06] MEDS ORDERED: INSU100I11 SQ-INSULIN (11:47)
== END 2018-09-06 15:01 | DRG 329 ==
LOC: ED 23:35 → EDIP 08-23 01:00 → 3NE 08-23 01:38 → 4NOR 08-25 15:45
PROVIDERS: ADMIT Internal Medicine; ATTEND Hospitalist
PROC: 0DTN0ZZ Resection of Sigmoid Colon, Open Approach (ICD-10-PCS; 2018-08-25)
PROC: 0D1N0Z4 Bypass Sigmoid Colon to Cutaneous, Open Approach (ICD-10-PCS; 2018-08-25)
PROC: 02HV33Z Insertion of Infusion Device into Superior Vena Cava, Percutaneous Approach (ICD-10-PCS; principal; 2018-08-31)
PROC: B5181ZA Fluoroscopy of Superior Vena Cava using Low Osmolar Contrast, Guidance (ICD-10-PCS; 2018-08-31)
PROC: B548ZZA Ultrasonography of Superior Vena Cava, Guidance (ICD-10-PCS; 2018-08-31)
DX: K56.609 Unspecified intestinal obstruction, unspecified as to partial versus complete obstruction (principal); E43 Unspecified severe protein-calorie malnutrition; K57.32 Diverticulitis of large intestine without perforation or abscess without bleeding; K59.39 Other megacolon; J98.11 Atelectasis; K56.7 Ileus, unspecified; E03.9 Hypothyroidism, unspecified; E11.9 Type 2 diabetes mellitus without complications; E78.5 Hyperlipidemia, unspecified; E87.5 Hyperkalemia; F32.9 Major depressive disorder, single episode, unspecified; G25.81 Restless legs syndrome; J47.9 Bronchiectasis, uncomplicated; I11.9 Hypertensive heart disease without heart failure; J84.10 Pulmonary fibrosis, unspecified; N20.0 Calculus of kidney; Z79.4 Long term (current) use of insulin; Z90.710 Acquired absence of both cervix and uterus; Z88.8 Allergy status to other drugs, medicaments and biological substances; Z68.35 Body mass index [BMI] 35.0-35.9, adult
CPT/HCPCS: 36415; 36569; 71045; 74177; 76937; 77001; 80048; 80053; 80061; 81003; 82040; 82962; 83036; 83690; 83735; 84100; 84134; 84145; 84439; 84443; 84478; 85025; 88307; 93005; 94640; 96372; 96374; G0378; J0610; J1100; J1170; J1335; J1815; J1940; J1956; J2250; J2704; J2710; J2997; J3010; J3370; J3475; J3480; J3490; J7042; J7613; P9047; Q0162; Q9967; C1751; J0330; J2270; J2370; J3420; J7030; J7040; J7050

== ENCOUNTER → 2018-11-20 | Outpatient (CLI) | payer MEDICARE, OTHER ==
[~2018-11-20] MED LIST changes: +INSU100I11 SQ-INSULIN; +MAGN400T36 PO
== END | disposition home or self-care (01) ==
LOC: RAD 15:49
PROVIDERS: ATTEND Surgery
DX: K57.30 Diverticulosis of large intestine without perforation or abscess without bleeding (principal); Z93.3 Colostomy status
CPT/HCPCS: 74270

== ENCOUNTER → 2019-02-22 | Outpatient (CLI) | payer OTHER ==
[~2019-02-22] MED LIST changes: +ERYT500T17 PO; +NEOM500T PO; +OXYC-306 PO
[2019-02-22 15:47] LABS: ALANINE AMINOTRANSFERASE 26 U/L (12-78); ALBUMIN 3.6 g/dL (3.4-5.0); ANION GAP 6 mmol/L (5-15); CALCIUM 8.9 mg/dL (8.5-10.1); CHLORIDE 106 mmol/L (98-107); CREATININE 0.82 mg/dL (0.55-1.02)
[2019-02-22 15:49] LABS: ALKALINE PHOSPHATASE 88 U/L (45-117); BILIRUBIN,TOTAL 0.3 mg/dL (0.2-1.0); TOTAL PROTEIN 6.9 g/dL (6.4-8.2)
== END | disposition home or self-care (01) ==
LOC: STAR 14:40
PROVIDERS: ATTEND Surgery
DX: Z01.812 Encounter for preprocedural laboratory examination (principal); K43.2 Incisional hernia without obstruction or gangrene
CPT/HCPCS: 36415; 80053; 93005

== ENCOUNTER 2019-03-08 07:18 | Day surgery (SDC) | payer OTHER ==
[~2019-03-08] VITALS: Ht 142.2 cm; Wt 69.0 kg
[2019-03-08] MEDS ORDERED: LACTATED RINGERS 1,000 ML IV SCH ×2 (07:46→10:55)
[2019-03-08] MEDS ORDERED: EPINEPHRINE 1 MG/ML, 1ML ONE (08:06)
[2019-03-08] MEDS ORDERED: BUPIVACAINE/PF 0.5% ONE (08:06)
[2019-03-08 08:22] VITALS: BP 134/78
[2019-03-08] MEDS ORDERED: CEFAZOLIN 1,000 MG ONE (09:34)
[2019-03-08] MEDS ORDERED: PROPOFOL 10 MG/ML, 20ML ONE (09:34)
[2019-03-08] MEDS ORDERED: ROCURONIUM 10MG/ML,5ML ONE ×2 (09:36→09:59)
[2019-03-08] MEDS ORDERED: SUGAMMADEX 200 MG/2 ML IVPush ONE (09:40)
[2019-03-08] MEDS ORDERED: FENTANYL PF 100 MCG/2ML ONE ×2 (09:57→11:09)
[2019-03-08] MEDS ORDERED: DEXAMETHASONE 4 MG/ML, 1ML ONE (09:59)
[2019-03-08] MEDS ORDERED: PHENYLEPHRINE 10 MG/ML ONE (09:59)
[2019-03-08] MEDS ORDERED: ACETAMINOPHEN 325 MG TABLET PO PRN (10:30)
[2019-03-08] MEDS ORDERED: MEPERIDINE/PF 25MG/0.5ML IVPush PRN (10:30)
[2019-03-08] MEDS ORDERED: HYDROcodone/APAP 7.5-325MG/15ML UDC PO PRN (10:30)
[2019-03-08] MEDS ORDERED: KETOROLAC 30 MG/1 ML IV PRN ×2 (10:30)
[2019-03-08] MEDS ORDERED: FENTANYL PF 100 MCG/2ML IV PRN (10:30)
[2019-03-08] MEDS ORDERED: HYDROmorphone 2 MG/ML, 1ML IVPush PRN (10:30)
[2019-03-08] MEDS ORDERED: KETOROLAC 30 MG/1 ML IM PRN ×2 (10:30)
[2019-03-08] MEDS ORDERED: MORPHINE SULFATE 4 MG/ML, 1ML IVPush PRN (10:30)
[2019-03-08] MEDS ORDERED: OXYcodone 5 MG/5 ML ORAL.SOL UDC PO PRN (10:30)
[2019-03-08] MEDS ORDERED: ONDANSETRON 2MG/ML, 2ML IVPush PRN (11:00)
[2019-03-08] MEDS ORDERED: HYDROmorphone 1 MG/ML, 1ML INJ IVPush PRN (11:00)
[2019-03-08] MEDS ORDERED: OXYcodone 5 MG/5 ML ORAL.SOL UDC ONE (11:09)
[2019-03-08] MEDS ORDERED: ACETAMINOPHEN 650 MG/20.3 ML UDC ONE ×2 (11:09→11:14)
== END 2019-03-08 13:30 | disposition home or self-care (01) ==
LOC: OUT 07:18
PROVIDERS: ATTEND Surgery
DX: K43.2 Incisional hernia without obstruction or gangrene (principal); E11.9 Type 2 diabetes mellitus without complications; I10 Essential (primary) hypertension; E78.5 Hyperlipidemia, unspecified; E03.9 Hypothyroidism, unspecified; Z93.3 Colostomy status; Z88.6 Allergy status to analgesic agent; Z88.1 Allergy status to other antibiotic agents; Z88.8 Allergy status to other drugs, medicaments and biological substances; Z79.84 Long term (current) use of oral hypoglycemic drugs; Z79.899 Other long term (current) drug therapy
CPT/HCPCS: 49560; 49568; 82962; C1781; J0171; J0690; J1100; J2370; J2704; J3010; J7120